=== PATIENT | male | born 1980 | race Caucasian/White ===

== ENCOUNTER 2016-10-27 01:14 | Day surgery (SDC) | payer OTHER ==
[~2016-10-27] VITALS: Ht 180.3 cm; Wt 77.0 kg
[2016-10-27] MEDS ORDERED: ONDANSETRON HCL 4MG/2ML VIAL IV STA (03:28)
[2016-10-27] MEDS ORDERED: MORPHINE SULFATE 4 MG/ML CPJ (NOT FOR IM USE) IV STA (03:28)
[2016-10-27] MEDS ORDERED: SODIUM CHLORIDE 0.9% 1,000 ML IV ONE ×2 (03:28→08:14)
[2016-10-27 03:43] LABS: HEMATOCRIT. 42.2 % (42.0-52.0); HEMOGLOBIN. 14.4 g/dL (14.0-18.0); MEAN CORPUSCULAR HGB CONC 34.2 g/dL (31.0-37.0); MEAN CORPUSCULAR VOLUME 84.9 fL (80.0-94.0); MEAN PLATELET VOLUME 6.7 fl (7.4-10.4); PLATELET 234 x1000/uL (130-400); RED BLOOD CELL COUNT 4.97 mill/uL (4.7-6.1); RED CELL DISTRIBUTION WIDTH 13.6 % (11.6-14.6); WHITE BLOOD COUNT 12.5 x1000/uL (4.5-11.0)
[2016-10-27 03:46] LABS: DIFFERENTIAL COMMENT 1
[2016-10-27 03:58] LABS: ALANINE AMINOTRANSFERASE 30 IU/L (13-61); ALBUMIN 4.1 g/dL (3.4-5.0); CALCIUM 9.4 mg/dL (8.5-10.1); CARBON DIOXIDE 29 mEq/L (21-32); CHLORIDE 105 mEq/L (98-107); INDEX HEMOLYSI 1 (1-3); INDEX ICTERIC 1 (1-4); INDEX LIPEMIC 1 (1-3); LIPASE 93 IU/L (73-393); UREA NITROGEN BLOOD 12 mg/dL (7-21); eGFR > 60 mL/min (>60)
[2016-10-27 04:06] LABS: ANION GAP 11
[2016-10-27 04:48] LABS: CLARITY URINE CLEAR (CLEAR); COLOR URINE YELLOW (YELLOW); GLUCOSE URINE NEGATIVE (NEGATIVE); KETONES URINE NEGATIVE (NEGATIVE); LEUKOCYTE ESTERASE URINE NEGATIVE (NEGATIVE); NITRITE URINE NEGATIVE (NEGATIVE); OCCULT BLOOD URINE NEGATIVE (NEGATIVE); PROTEIN URINE NEGATIVE (NEGATIVE); SPECIFIC GRAVITY URINE 1.023 (1.005-1.030)
[2016-10-27 05:29] LABS: ATYPICAL LYMPHOCYTES 1
[2016-10-27 05:34] LABS: PLATELET ESTIMATE NORMAL
[2016-10-27] MEDS: MORPHINE SULFATE 4 MG/ML CPJ (NOT FOR IM USE) IV NR ×2 (05:49→05:59)
[2016-10-27] MEDS ORDERED: IBUPROFEN 800 MG/8 ML VIAL IV ONE (08:15)
[2016-10-27] MEDS ORDERED: MORPHINE SULFATE 4 MG/ML CPJ (NOT FOR IM USE) IV ONE (08:15)
[2016-10-27] MEDS ORDERED: METRONIDAZOLE 500 MG PREMIX 100 ML IV ONE (08:15)
[2016-10-27] MEDS ORDERED: CEFTRIAXONE 1 G PREMIX 50 ML IV ONE (08:15)
[2016-10-27 09:22] VITALS: BP 118/60
[2016-10-27] MEDS ORDERED: DEXT 5%/0.45% NACL KCL 20MEQ/L 1,000 ML IV SCH (09:36)
[2016-10-27] MEDS ORDERED: HYDROCODONE/ACETAMINOPHEN 5/325MG TABLET PO PRN ×2 (09:45)
[2016-10-27] MEDS ORDERED: ONDANSETRON HCL 4MG/2ML VIAL IV PRN ×2 (09:45→11:00)
[2016-10-27] MEDS ORDERED: MORPHINE SULFATE 4 MG/ML CPJ (NOT FOR IM USE) IV PRN (09:45)
[2016-10-27] MEDS ORDERED: MORPHINE SULFATE 2 MG/ML CPJ (NOT FOR IM USE) IV PRN (09:45)
[2016-10-27] MEDS ORDERED: BUPIVACAINE HCL 0.5% (5MG/ML) 50ML ONE (10:14)
[2016-10-27] MEDS ORDERED: SKIN ADHESIVE 0.7 GM EA TOP ONE (10:14)
[2016-10-27] MEDS ORDERED: SODIUM CHLORIDE 0.9% 10ML VIAL ONE (10:55)
[2016-10-27] MEDS ORDERED: IOHEXOL-300 100 ML BOTTLE ONE (10:55)
[2016-10-27] MEDS ORDERED: DIATR MEGLU/DIATRIZOATE SOLN 120ML ONE (10:55)
[2016-10-27] MEDS ORDERED: MEPERIDINE HCL/PF 25MG/ML CPJ IV PRN (11:00)
[2016-10-27] MEDS ORDERED: LABETALOL HCL 20MG/4ML CARPUJECT IV PRN (11:00)
[2016-10-27] MEDS ORDERED: HYDROMORPHONE HCL/PF 2MG/ML CPJ IV PRN (11:00)
[2016-10-27] MEDS ORDERED: MIDAZOLAM HCL 2 MG/2 ML VIAL ONE (11:15)
[2016-10-27] MEDS ORDERED: FENTANYL CITRATE/PF 50MCG/ML 2ML VIAL ONE (11:15)
[2016-10-27] MEDS ORDERED: DEXAMETHASONE 4MG/ML 1ML VIAL ONE (11:58)
[2016-10-27] MEDS ORDERED: SUCCINYLCHOLINE CHLORIDE 200MG/10ML VIAL IV ONE (11:58)
[2016-10-27] MEDS ORDERED: NEOSTIGMINE METHYLSULFATE 1MG/ML 10 ML VIAL ONE (11:58)
[2016-10-27] MEDS ORDERED: ROCURONIUM BROMIDE 10MG/ML VIAL 5ML IV ONE (11:58)
[2016-10-27] MEDS ORDERED: LIDOCAINE HCL 1% 20ML VIAL (Pyxis) INJ ONE (11:58)
[2016-10-27] MEDS ORDERED: GLYCOPYRROLATE 0.2 MG/ML 2ML VIAL ONE (11:58)
[2016-10-27] MEDS ORDERED: PROPOFOL 200MG/20ML VIAL IV ONE (11:58)
[2016-10-27] MEDS ORDERED: ONDANSETRON HCL 4MG/2ML VIAL ONE (11:59)
[2016-10-27] MEDS ORDERED: SODIUM CHLORIDE 0.9% INJ 3ML FLUSH IVF SCH (14:00)
== END 2016-10-27 13:10 | disposition home or self-care (01) ==
LOC: ER 01:15 → OR 09:41
PROVIDERS: ATTEND Surgery
DX: K35.80 Unspecified acute appendicitis (principal); R73.9 Hyperglycemia, unspecified; E80.7 Disorder of bilirubin metabolism, unspecified
CPT/HCPCS: 36415; 44970; 74177; 80053; 81003; 83690; 85025; 88304; 96361; 96365; 96375; 96376; 99285; A4216; G0168; J0330; J0696; J1100; J1741; J2250; J2270; J2405; J2710; J3010; J3490; J7030; Q9967; 73706; J2704; Q9963